=== PATIENT | female | born 1980 | race Caucasian/White ===

== ENCOUNTER 2025-03-01 11:46 | Emergency (ER) | payer OTHER ==
[2025-03-01 12:09] VITALS: TEMP 97.9
[2025-03-01] MEDS: OFIRMEV 1,000 MG/100 ML ML IV ONE (12:24)
[2025-03-01] MEDS ORDERED: OFIRMEV 100 ML IV ONE (12:24)
[2025-03-01 12:44] LABS: BASOPHIL % 0.9 % (0.1-1.2); Basophil (Absolute #) 0.04 x10^3/uL (0.01-0.08); Eosinophil (Absolute #) 0.10 x10^3/uL (0.04-0.36); Hematocrit 36.9 % (34.1-44.9); Hemoglobin 12.3 g/dL (11.2-15.7); IMMATURE GRAN # 0.01 x10^3u/L (0.001-0.031); IMMATURE GRAN % 0.2 % (0.001-0.429); Lymphocyte (Absolute #) 1.40 x10^3/uL (1.18-3.74); Mean Corpuscular Hemoglobin 31.5 pg (25.6-32.2); Mean Corpuscular Hgb Concent. 33.3 g/dL (32.2-35.5); Monocyte (Absolute #) 0.34 x10^3/uL (0.24-0.86); NUCLEATED RBC # 0.00 x10^3u/L (0.00-0.012); NUCLEATED RBC % 0.0 % (0.00-0.2); Platelet Count 176 x10^3/uL (182-369); Red Blood Count 3.90 x10^6/uL (3.93-5.22); White Blood Count 4.4 x10^3/uL (3.98-10.04)
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
[2025-03-01 12:52] LABS: HCG URINE TEST NEGATIVE (NEGATIVE)
[2025-03-01 12:54] LABS: Calcium 9.1 mg/dL (8.4-10.2); Carbon Dioxide 27.0 mmol/L (22-30); Creatinine 1 0.54 mg/dL (0.52-1.04); EST GLOMERULAR FILTRATION RATE 117.8 ML/MIN; Glucose 99.0 mg/dL (74-106); Potassium 4.2 mmol/L (3.5-5.1); SGOT/AST 26.0 U/L (14-36); SGPT/ALT 24.0 U/L (0-35); Total Protein 7.1 g/dL (6.3-8.2)
[2025-03-01 13:00] LABS: Glucose, Urine Negative (Negative); Protein,Urine Dip Negative (Negative); RBC 0-2 /HPF (0-5); WBC 0-2 /HPF (0-5)
[2025-03-01 13:04] VITALS: BP 113/62; PULSE 74; RESP 17
[2025-03-01 13:22] VITALS: O2SAT 99
== END 2025-03-01 13:27 | disposition left against medical advice (07) ==
LOC: ED 11:46
DX: Z04.1 Encounter for examination and observation following transport accident (principal); R51.9 Headache, unspecified; R07.9 Chest pain, unspecified; M25.561 Pain in right knee; M79.605 Pain in left leg; M79.642 Pain in left hand; I10 Essential (primary) hypertension; Z79.01 Long term (current) use of anticoagulants; Z79.899 Other long term (current) drug therapy